=== PATIENT | female | born 1940 | race Caucasian/White ===

== ENCOUNTER 2022-07-15 16:58 | Emergency (ER) | payer OTHER, MEDICAID ==
[~2022-07-15] VITALS: Ht 147.3 cm; Wt 44.5 kg
[~2022-07-15 16:58] MED LIST: ASPI-1155 PO; ESCI10TA PO; FERR236T3 PO; LISI1TAB53 PO; MELA5TAB12 PO; QUET25TA36 PO; VIT1TABL80 PO; VITD2000 PO
[2022-07-15 17:00] VITALS: BP_SYST 121
--- NOTE | 2022-07-15 17:05 | NUR ---
Patient triaged and placed in waiting room. VSS and patient appears in no acute distress at this time. Accompanied by DAUGHTER, awaiting available bed, and MD notified of need for MSE.
[2022-07-15] MEDS ORDERED: HYDROcodone/ACETAMIN 5-325 MG TAB (NORCO/ VICODIN) PO ONE (18:30)
[2022-07-15] MEDS ORDERED: IBUPROFEN 600 MG TABLET PO ONE (18:30)
[2022-07-15 19:08] LABS: BASOPHILS % (AUTO) 0.2 % (0.0-2.0); EOSINOPHILS # (AUTO) 0.1 K/uL (0.0-0.4); EOSINOPHILS % (AUTO) 1.6 % (0.0-4.0); HEMATOCRIT 27.9 % (36-48); LYMPHOCYTES # (AUTO) 0.3 K/uL (1.0-5.5); LYMPHOCYTES % (AUTO) 4.6 % (20.5-51.5); MEAN CORPUSCULAR VOLUME 85 fL (79.0-98.0); MONOCYTES # (AUTO) 0.5 K/uL (0.0-1.0); MONOCYTES % (AUTO) 6.6 % (1.7-9.3); NEUTROPHILS # (AUTO) 6.1 K/uL (1.8-7.7); PLATELET COUNT (AUTO) 229 K/uL (130-430); RED BLOOD CELL COUNT(AUTO) 3.28 MIL/uL (4.2-6.2)
[2022-07-15 19:16] LABS: ANION GAP 7 (5-15); CHLORIDE 107 mmol/L (98-107); CREATININE 1.61 mg/dL (0.55-1.30); GLUCOSE 159 mg/dL (70-99); POTASSIUM 3.9 mmol/L (3.5-5.1); UREA NITROGEN, BLOOD 26 mg/dL (8-21)
[2022-07-15 19:22] LABS: ALANINE AMINOTRANSFERASE 18 U/L (12-78); ALBUMIN 2.9 g/dL (3.4-4.8); AMYLASE 64 U/L (0-100); ASPARTATE AMINOTRANSFERASE 18 U/L (10-37); C-REACTIVE PROTEIN QUANT 0.4 mg/dL (0-0.5); LIPASE 55 U/L (73-393); TOTAL BILIRUBIN 0.1 mg/dL (0.0-1.0)
[2022-07-15] MEDS ORDERED: HYDR-3917 PO (19:33)
[2022-07-15] MEDS ORDERED: IBUP-1969 PO (19:33)
[2022-07-15] MEDS ORDERED: DOCU-144 PO (19:49)
--- NOTE | 2022-07-15 19:51 | NUR ---
Patient given written and verbal discharge instructions and verbalizes understanding. ER MD discussed with patient the results and treatment provided. Patient in stable condition. ID arm band removed. Rx of given. Patient educated on pain management and to follow up with PMD. Pain Scale 4/10. Opportunity for questions provided and answered. Medication side effect fact sheet provided.
== END 2022-07-15 19:51 | disposition home or self-care (01) ==
LOC: SED 16:58
DX: K62.3 Rectal prolapse (principal); Z79.899 Other long term (current) drug therapy
CPT/HCPCS: 36415; 76376; 80053; 82150; 83605; 83690; 85025; 86140; 99284

== ENCOUNTER 2022-08-05 05:43 | Inpatient (IN) | payer OTHER, MEDICAID ==
[~2022-08-05] VITALS: Ht 147.3 cm; Wt 44.9 kg
[~2022-08-05 05:43] MED LIST changes: +DOCU-144 PO; +HYDR-3917 PO; +IBUP-1969 PO
[2022-08-05] MEDS ORDERED: CEFAZOLIN SOD 1 GM in D5W 50 ML IV ONE (07:15)
[2022-08-05] MEDS ORDERED: ROCURONIUM BROMIDE 10 MG/ML (ZEMURON) IV ONE (07:35)
[2022-08-05] MEDS ORDERED: fentaNYL CITRATE/PF 100 MCG/2 ML AMP IVP ONE (07:35)
[2022-08-05] MEDS ORDERED: NS 100 ML BAG IV ONE (07:35)
[2022-08-05] MEDS ORDERED: ROPIVACAINE HCL/PF 0.2% EPIDURAL 200 ML PLAST..BAG EP ONE (07:35)
[2022-08-05] MEDS ORDERED: ATROPINE SULFATE 0.4 MG/ML VIAL IVP ONE (07:35)
[2022-08-05] MEDS ORDERED: PROPOFOL 200MG/ 20ML VIAL (DIPRIVAN) IV ONE (07:35)
[2022-08-05] MEDS ORDERED: ONDANSETRON HCL 4 MG/2 ML VIAL IVP ONE (07:35)
[2022-08-05] MEDS ORDERED: LR 1,000 ML IV.SOLN IV ONE (07:35)
[2022-08-05] MEDS ORDERED: DEXAMETHASONE SOD PHOSPHATE 4 MG/ML VIAL IVP ONE (07:35)
[2022-08-05] MEDS ORDERED: cefOXitin SODIUM 2 GM/VIAL (MEFOXIN) IV ONE (07:35)
[2022-08-05] MEDS ORDERED: GLYCOPYRROLATE 0.2 MG/ML VIAL IJ ONE (07:35)
[2022-08-05] MEDS ORDERED: SEVOFLURANE 15 MIN GAS INH ONE (07:35)
[2022-08-05] MEDS ORDERED: NS IRRIG SOLN 1000 ML IR ONE (07:35)
[2022-08-05] MEDS ORDERED: NS 1000 ML IV.SOLN IV ONE (07:35)
[2022-08-05] MEDS ORDERED: NEOSTIGMINE METHYLSULFATE 1 MG/ML, 10 ML VIAL IVP ONE (07:35)
[2022-08-05] MEDS ORDERED: MIDAZOLAM HCL 5 MG/5 ML VIAL IVP ONE (07:35)
[2022-08-05] MEDS ORDERED: BUPIVACAINE LIPOSOME/PF 266 MG/20 ML VIAL INFIL ONE (07:40)
[2022-08-05] MEDS ORDERED: CEFOXITIN 2 GM/DEXTROSE,ISO 50 ML (PREMIX) IV ONE (07:45)
[2022-08-05] MEDS ORDERED: cefOXitin SODIUM 2 GM in D5W 100 ML IV ONE (08:00)
[2022-08-05] MEDS ORDERED: hydrALAZINE HCL 20 MG/ML VIAL IVP PRN (10:15)
[2022-08-05] MEDS ORDERED: MORPHINE 4 MG INJ. 4 MG/ML VIAL IVP PRN (10:15)
[2022-08-05] MEDS ORDERED: METOCLOPRAMIDE HCL 10 MG/2 ML VIAL IVP PRN (10:15)
[2022-08-05] MEDS ORDERED: HYDROmorphone 1 MG/ML INJ. CARTRIDGE IVP PRN ×2 (10:15→11:00)
[2022-08-05] MEDS ORDERED: ACETAMINOPHEN I.V. 1000 MG 100 ML IV ONE (10:15)
[2022-08-05] MEDS ORDERED: NALOXONE HCL 0.4 MG/ML AMP (NARCAN) IVP PRN ×4 (10:15→11:00)
[2022-08-05] MEDS ORDERED: ESCI10TA PO (10:38)
[2022-08-05] MEDS ORDERED: LIP10 PO (10:38)
[2022-08-05] MEDS ORDERED: ASPI-859 PO (10:38)
[2022-08-05] MEDS ORDERED: LISI20TA30 PO (10:38)
[2022-08-05] MEDS ORDERED: VITD2000 PO (10:38)
[2022-08-05] MEDS ORDERED: GLUC-119 PO (10:38)
[2022-08-05] MEDS ORDERED: MULT-1117 PO (10:38)
[2022-08-05] MEDS ORDERED: HYDR-3917 PO (10:38)
[2022-08-05] MEDS ORDERED: SER25 PO (10:38)
[2022-08-05] MEDS ORDERED: DOCU-144 PO (10:38)
[2022-08-05] MEDS ORDERED: IBUP-1969 PO (10:38)
[2022-08-05] MEDS ORDERED: ONDANSETRON HCL 4 MG/2 ML VIAL IVP PRN (11:00)
[2022-08-05] MEDS ORDERED: ACETAMINOPHEN 325 MG TABLET PO PRN (11:00)
[2022-08-05] MEDS ORDERED: HYDROmorphone 1 MG/ML INJ. CARTRIDGE ONE (11:34)
[2022-08-05 11:37] LABS: HEMOGLOBIN 8.5 g/dL (12.0-16.0)
[2022-08-05 11:44] LABS: ANION GAP 6 (5-15); CALCIUM 9.6 mg/dL (8.4-11.0); CHLORIDE 109 mmol/L (98-107); CREATININE 1.94 mg/dL (0.55-1.30); GLUCOSE 158 mg/dL (70-99); POTASSIUM 3.3 mmol/L (3.5-5.1); UREA NITROGEN, BLOOD 18 mg/dL (8-21)
[2022-08-05 13:06] VITALS: BP_SYST 143
[2022-08-05] MEDS: D5/0.45 NS 1,000 ML IV SCH (15:04)
[2022-08-05 17:10] VITALS: BP_SYST 143
[2022-08-05 20:00] VITALS: BP_SYST 141
[2022-08-06 00:09] VITALS: BP_SYST 134
[2022-08-06] MEDS: D5/0.45 NS 1,000 ML IV SCH ×3 (00:27→17:00)
[2022-08-06] MEDS: cefOXitin SODIUM 2 GM in D5W 100 ML IV SCH ×2 (00:34→09:33)
[2022-08-06] MEDS: FAMOTIDINE PF 20 MG/2 ML VIAL IVP SCH ×3 (00:35→20:59)
[2022-08-06 07:38] LABS: BASOPHILS % (AUTO) 0.4 % (0.0-2.0); EOSINOPHILS % (AUTO) 0.1 % (0.0-4.0); LYMPHOCYTES # (AUTO) 0.9 K/uL (1.0-5.5); LYMPHOCYTES % (AUTO) 11.6 % (20.5-51.5); MEAN CORPUSCULAR HEMOGLOBIN 24 pg (27-31); MEAN CORPUSCULAR HGB CONC 29 % (32-36); MEAN CORPUSCULAR VOLUME 83 fL (79.0-98.0); MONOCYTES # (AUTO) 0.9 K/uL (0.0-1.0); MONOCYTES % (AUTO) 11.7 % (1.7-9.3); NEUTROPHILS # (AUTO) 5.7 K/uL (1.8-7.7); NEUTROPHILS % (AUTO) 76.2 % (40.0-70.0); PLATELET COUNT (AUTO) 186 K/uL (130-430); RED BLOOD CELL COUNT(AUTO) 2.52 MIL/uL (4.2-6.2); RED CELL DISTRIBUTION WIDTH 16.5 % (9.0-15.0); WHITE BLOOD COUNT (AUTO) 7.4 K/uL (4.8-10.8)
[2022-08-06 08:00] VITALS: BP_SYST 122
[2022-08-06 08:02] LABS: ALANINE AMINOTRANSFERASE 12 U/L (12-78); ALBUMIN 2.4 g/dL (3.4-4.8); ANION GAP 7 (5-15); ASPARTATE AMINOTRANSFERASE 24 U/L (10-37); CALCIUM 9.1 mg/dL (8.4-11.0); CHLORIDE 108 mmol/L (98-107); GLUCOSE 96 mg/dL (70-99); POTASSIUM 3.2 mmol/L (3.5-5.1); TOTAL BILIRUBIN 0.2 mg/dL (0.0-1.0); UREA NITROGEN, BLOOD 17 mg/dL (8-21)
[2022-08-06] MEDS: ENOXAPARIN SODIUM 30 MG/0.3 ML SYRINGE SUBCUT SCH ×2 (09:00→09:34)
[2022-08-06 12:05] VITALS: BP_SYST 126
[2022-08-06] MEDS ORDERED: POTASSIUM CHLORIDE 40 MEQ in NS 250 ML IV ONE (12:45)
[2022-08-06 15:25] VITALS: BP_SYST 128
[2022-08-06] MEDS: POTASSIUM CHLORIDE 20 mEq in 100 mL (PREMIX) 100 ML x 2 doses IV SCH (18:05)
[2022-08-06] MEDS: HYDROcodone/ACETAMIN 5-325 MG TAB (NORCO/ VICODIN) PO PRN (20:59)
[2022-08-06] MEDS ORDERED: QUEtiapine FUMARATE 25 MG TABLET PO ONE (23:15)
[2022-08-06] MEDS ORDERED: HALOPERIDOL LACTATE 5 MG/ML VIAL IM ONE (23:30)
[2022-08-07] MEDS: DIPHENHYDRAMINE INJ 50 MG/ML VIAL IVP PRN ×2 (00:45→17:44)
[2022-08-07] MEDS: D5/0.45 NS 1,000 ML IV SCH (03:17)
[2022-08-07] MEDS: POTASSIUM CHLORIDE 20 mEq in 100 mL (PREMIX) 100 ML x 2 doses IV SCH (03:30)
[2022-08-07 06:48] LABS: BASOPHILS % (AUTO) 0.7 % (0.0-2.0); EOSINOPHILS # (AUTO) 0.1 K/uL (0.0-0.4); HEMATOCRIT 32.7 % (36-48); HEMOGLOBIN 10.7 g/dL (12.0-16.0); LYMPHOCYTES # (AUTO) 0.8 K/uL (1.0-5.5); LYMPHOCYTES % (AUTO) 13.3 % (20.5-51.5); MEAN CORPUSCULAR HEMOGLOBIN 28 pg (27-31); MEAN CORPUSCULAR HGB CONC 33 % (32-36); MEAN CORPUSCULAR VOLUME 85 fL (79.0-98.0); MONOCYTES # (AUTO) 0.8 K/uL (0.0-1.0); MONOCYTES % (AUTO) 13.6 % (1.7-9.3); NEUTROPHILS # (AUTO) 4.1 K/uL (1.8-7.7); NEUTROPHILS % (AUTO) 71.4 % (40.0-70.0); PLATELET COUNT (AUTO) 189 K/uL (130-430); RED BLOOD CELL COUNT(AUTO) 3.86 MIL/uL (4.2-6.2); RED CELL DISTRIBUTION WIDTH 15.9 % (9.0-15.0); WHITE BLOOD COUNT (AUTO) 5.7 K/uL (4.8-10.8)
[2022-08-07 07:02] LABS: ALANINE AMINOTRANSFERASE 15 U/L (12-78); ALBUMIN 2.4 g/dL (3.4-4.8); ANION GAP 9 (5-15); ASPARTATE AMINOTRANSFERASE 33 U/L (10-37); CALCIUM 9.9 mg/dL (8.4-11.0); CHLORIDE 108 mmol/L (98-107); CREATININE 1.41 mg/dL (0.55-1.30); GLUCOSE 89 mg/dL (70-99); POTASSIUM 4.1 mmol/L (3.5-5.1); TOTAL BILIRUBIN 0.4 mg/dL (0.0-1.0); UREA NITROGEN, BLOOD 10 mg/dL (8-21)
[2022-08-07] MEDS ORDERED: ASPIRIN 81 MG TAB.CHEW PO ONE (09:00)
[2022-08-07] MEDS ORDERED: QUEtiapine FUMARATE 25 MG TABLET PO SCH ×2 (09:00→17:00)
[2022-08-07] MEDS: ATORVASTATIN 10 MG TABLET PO SCH (10:27)
[2022-08-07] MEDS: ENOXAPARIN SODIUM 30 MG/0.3 ML SYRINGE SUBCUT SCH (10:27)
[2022-08-07] MEDS: FAMOTIDINE PF 20 MG/2 ML VIAL IVP SCH ×2 (10:29→22:11)
[2022-08-07] MEDS: CITALOPRAM HYDROBROMIDE 20 MG TABLET PO SCH (10:29)
[2022-08-07] MEDS: DOCUSATE SODIUM 100 MG CAPSULE PO SCH (10:30)
[2022-08-07 12:28] VITALS: BP_SYST 146
[2022-08-07 16:25] VITALS: BP_SYST 160
[2022-08-07 20:00] VITALS: BP_SYST 148
[2022-08-07] MEDS: HYDROcodone/ACETAMIN 5-325 MG TAB (NORCO/ VICODIN) PO PRN (22:21)
[2022-08-08 00:51] VITALS: BP_SYST 145
[2022-08-08 08:00] VITALS: BP_SYST 171
[2022-08-08] MEDS: DOCUSATE SODIUM 100 MG CAPSULE PO SCH (09:39)
[2022-08-08] MEDS: CITALOPRAM HYDROBROMIDE 20 MG TABLET PO SCH (09:39)
[2022-08-08] MEDS: ATORVASTATIN 10 MG TABLET PO SCH (09:39)
[2022-08-08] MEDS: ENOXAPARIN SODIUM 30 MG/0.3 ML SYRINGE SUBCUT SCH (09:41)
[2022-08-08] MEDS: FAMOTIDINE PF 20 MG/2 ML VIAL IVP SCH ×2 (09:42→21:08)
[2022-08-08] MEDS: D5/0.45 NS 1,000 ML IV SCH ×3 (09:42→18:18)
[2022-08-08 12:00] VITALS: BP_SYST 201
[2022-08-08] MEDS ORDERED: LISINOPRIL 10 MG TABLET (PRINIVIL) PO ONE (13:30)
[2022-08-08 14:14] VITALS: BP_SYST 171
[2022-08-08] MEDS: HYDROcodone/ACETAMIN 5-325 MG TAB (NORCO/ VICODIN) PO PRN (15:50)
[2022-08-08 16:00] VITALS: BP_SYST 182
[2022-08-08] MEDS: QUEtiapine FUMARATE 25 MG TABLET PO SCH (17:31)
[2022-08-08 20:00] VITALS: BP_SYST 151
[2022-08-09] VITALS (8 sets, daily range): BP systolic 114–184
[2022-08-09] MEDS: D5/0.45 NS 1,000 ML IV SCH ×2 (06:17→15:27)
[2022-08-09 07:02] LABS: ALANINE AMINOTRANSFERASE 15 U/L (12-78); ALBUMIN 2.3 g/dL (3.4-4.8); ANION GAP 7 (5-15); ASPARTATE AMINOTRANSFERASE 24 U/L (10-37); CALCIUM 10.5 mg/dL (8.4-11.0); CHLORIDE 112 mmol/L (98-107); CREATININE 1.29 mg/dL (0.55-1.30); GLUCOSE 85 mg/dL (70-99); POTASSIUM 3.5 mmol/L (3.5-5.1); TOTAL BILIRUBIN 0.4 mg/dL (0.0-1.0); UREA NITROGEN, BLOOD 6 mg/dL (8-21)
[2022-08-09 07:31] LABS: BASOPHILS % (AUTO) 0.7 % (0.0-2.0); EOSINOPHILS # (AUTO) 0.5 K/uL (0.0-0.4); EOSINOPHILS % (AUTO) 9.3 % (0.0-4.0); HEMATOCRIT 32.3 % (36-48); HEMOGLOBIN 10.7 g/dL (12.0-16.0); LYMPHOCYTES # (AUTO) 0.6 K/uL (1.0-5.5); LYMPHOCYTES % (AUTO) 12.7 % (20.5-51.5); MEAN CORPUSCULAR HEMOGLOBIN 28 pg (27-31); MEAN CORPUSCULAR HGB CONC 33 % (32-36); MEAN CORPUSCULAR VOLUME 86 fL (79.0-98.0); MONOCYTES # (AUTO) 0.6 K/uL (0.0-1.0); MONOCYTES % (AUTO) 11.2 % (1.7-9.3); NEUTROPHILS # (AUTO) 3.4 K/uL (1.8-7.7); NEUTROPHILS % (AUTO) 66.1 % (40.0-70.0); PLATELET COUNT (AUTO) 193 K/uL (130-430); RED BLOOD CELL COUNT(AUTO) 3.78 MIL/uL (4.2-6.2); RED CELL DISTRIBUTION WIDTH 16.4 % (9.0-15.0); WHITE BLOOD COUNT (AUTO) 5.1 K/uL (4.8-10.8)
[2022-08-09] MEDS ORDERED: hydrALAZINE HCL 20 MG/ML VIAL IVP PRN (08:00)
[2022-08-09] MEDS: DOCUSATE SODIUM 100 MG CAPSULE PO SCH (08:54)
[2022-08-09] MEDS: ATORVASTATIN 10 MG TABLET PO SCH (08:54)
[2022-08-09] MEDS: ENOXAPARIN SODIUM 30 MG/0.3 ML SYRINGE SUBCUT SCH (08:56)
[2022-08-09] MEDS: CITALOPRAM HYDROBROMIDE 20 MG TABLET PO SCH (08:57)
[2022-08-09] MEDS ORDERED: LISINOPRIL 10 MG TABLET (PRINIVIL) PO SCH (09:00)
[2022-08-09] MEDS: FAMOTIDINE PF 20 MG/2 ML VIAL IVP SCH ×3 (09:36→20:04)
[2022-08-09] MEDS: HYDROcodone/ACETAMIN 5-325 MG TAB (NORCO/ VICODIN) PO PRN (15:26)
[2022-08-09] MEDS: QUEtiapine FUMARATE 25 MG TABLET PO SCH (16:54)
[2022-08-10 00:55] VITALS: BP_SYST 152
[2022-08-10] MEDS: D5/0.45 NS 1,000 ML IV SCH (01:03)
[2022-08-10] MEDS: ENOXAPARIN SODIUM 30 MG/0.3 ML SYRINGE SUBCUT SCH (08:51)
[2022-08-10] MEDS ORDERED: lisinopriL 20 MG TABLET PO SCH (09:00)
[2022-08-10] MEDS ORDERED: MULTIVITAMINS TAB 1 TABLET PO SCH (09:00)
[2022-08-10] MEDS ORDERED: DOCUSATE SODIUM 100 MG CAPSULE PO SCH (09:00)
[2022-08-10] MEDS ORDERED: ATORVASTATIN 10 MG TABLET PO SCH (09:00)
[2022-08-10] MEDS ORDERED: CITALOPRAM HYDROBROMIDE 20 MG TABLET PO SCH (09:00)
[2022-08-10] MEDS ORDERED: QUEtiapine FUMARATE 25 MG TABLET PO SCH (09:00)
[2022-08-10] MEDS ORDERED: ESCITALOPRAM OXALATE 10 MG TABLET PO SCH (09:00)
[2022-08-10 11:55] VITALS: BP_SYST 147
[2022-08-10 12:51] VITALS: BP_SYST 149
== END 2022-08-10 15:35 | disposition home or self-care (01) | DRG 329 ==
LOC: SMU 05:43 → STU 12:19
PROVIDERS: ADMIT Colon & Rectal Surgery; ATTEND Colon & Rectal Surgery
PROC: 0DTP0ZZ Resection of Rectum, Open Approach (ICD-10-PCS; 2022-08-05)
PROC: 0DJD8ZZ Inspection of Lower Intestinal Tract, Via Natural or Artificial Opening Endoscopic (ICD-10-PCS; 2022-08-05)
PROC: 0DQP0ZZ Repair Rectum, Open Approach (ICD-10-PCS; principal; 2022-08-05 07:56)
PROC: 30233N1 Transfusion of Nonautologous Red Blood Cells into Peripheral Vein, Percutaneous Approach (ICD-10-PCS; 2022-08-06)
DX: K62.3 Rectal prolapse (principal); E43 Unspecified severe protein-calorie malnutrition; N17.0 Acute kidney failure with tubular necrosis; K56.7 Ileus, unspecified; N81.10 Cystocele, unspecified; D64.9 Anemia, unspecified; E87.8 Other disorders of electrolyte and fluid balance, not elsewhere classified; Z20.822 Contact with and (suspected) exposure to COVID-19; E87.6 Hypokalemia; K66.0 Peritoneal adhesions (postprocedural) (postinfection); I10 Essential (primary) hypertension; E78.5 Hyperlipidemia, unspecified; F32.A Depression, unspecified; Z79.1 Long term (current) use of non-steroidal anti-inflammatories (NSAID); Z79.891 Long term (current) use of opiate analgesic; Z79.899 Other long term (current) drug therapy; Z68.20 Body mass index [BMI] 20.0-20.9, adult
CPT/HCPCS: 36415; 80048; 80053; 82962; 85018; 85025; 86886; 86900; 86901; 86920; 87081; 88307; C1727; C9290; G0378; J0360; J0461; J0690; J0694; J1100; J1170; J1200; J1650; J2250; J2405; J2704; J2710; J3010; J3480; J3490; J7030; J7050; J7060; J7120; P9021; U0003